=== PATIENT | male | born 1935 | race Hispanic/Latino ===

== ENCOUNTER 2019-10-20 13:03 | Observation (INO) | payer MEDICARE, OTHER ==
[~2019-10-20] VITALS: Ht 167.6 cm; Wt 92.1 kg
--- OUTSIDE RECORDS SUMMARY | 2019-10-20 13:06 | XMS REPORT | Summary of Care ---
Author Author GAVI Zeng M.A. Organization Unknown Address Unknown Phone Unavailable Care Team Providers Care Java Developer With Security Clearance Name Role Phone ZOEY GORDILLO M.D. Unavailable Unavailable Unavailable Unavailable Functional Status Name Dates Details Functional status health issues are not documented Status: Name Dates Details Cognitive status health issues are not d ocumented Status: Problems Name Dates Details Bilateral impacted cerumen (380.4, H61.2 3) Status: Active Medications Name Dates Details TraMADol HCl TABS Active Lantus SOLN * Refills: 0 Active Acetasol HC 2-1 % Otic Solution 3-4 drops to both ears TID * Quantity: 1 Refills: 1 ZOEY GORDILLO M.D. * Start : 12-Aug-2017 Active 10 ML Bottle Allergies and Adverse Reactions Name Dates Details No Known Drug Allergies (Allergy) Status : Active Past Medical History Name Dates Details History of arthritis (V13.4, Z87.39) Status: Resolved History of cataract (V12.49, Z86.69) Status: Resolved History of diabetes mellitus (V12.29, Z8 6.39) Status: Resolved History of hypertension (V12.59, Z86.79) Status: Resolved Procedures Procedure Dates Details History of cataract surgery Completed History of kidney surgery Completed Immunization Name Dates Details Immunizations not documented Family History Name Dates Details Family history of malignant neoplasm (V1 6.9, Z80.9) Comments: Family History Status: Active Social History Name Dates Details - Status: Name Dates Details Never smoker Vital Signs Date Test Result Details [id number] BP Systolic 137 mm[Hg] Status: BP Diastolic 56 mm[Hg] Status: Height 64 in Status: Weight 202 lb Status: Body Mass Index Calculated 34.67 kg/m2 Status: Body Surface Area Calculated 1.96 m2 Status: Heart Rate 96 /min Status: [id number] BP Systolic 137 mm[Hg] Status: BP Diastolic 80 mm[Hg] Status: Height 64 in Status: Weight 202.3125 lb Status: Body Mass Index Calculated 34.73 kg/m2 Status: Body Surface Area Calculated 1.97 m2 Status: Heart Rate 99 /min Status: Results Date Description Value Details [id number] Tobacco Use Screening Completed DONE Plan of Care Name Dates Details Planned Observations Planned Goals not documented Instructions Name Dates Details Instructions not documented Encounters Appointment; CARO DOMINGUEZ Encounter Diagnosis: Problem not documented On: 18-Jun-2017 11:30 Appointment; ZOEY GORDILLO M.D. Encounter Diagnosis: Problem not documented On: 09-Jul-2017 11:15 Appointment; ZOEY GORDILLO M.D. Encounter Diagnosis: Problem not documented On: 12-Aug-2017 13:00 Appointment; ZOEY GORDILLO M.D. Encounter Diagnosis: Problem not documented On: 06-Sep-2017 14:15
--- OUTSIDE RECORDS SUMMARY | 2019-10-20 13:06 | XMS REPORT ---
Author Author [facility] Organization [facility] Address Unknown Phone Unavailable Care Team Providers Care Assistant Sales Manager Name Role Phone ZOEY GORDILLO M.D. Unavailable Unavailable CARO DOMINGUEZ Unavailable Unavailable Problems Condition Name Condition Details Condition Category Status Onset Date Resolution Date Last Treatment Date Treating Clinician Comments History of arthritis History of arthritis Problem HL7.CCDAR2 Resolved History of cataract History of cataract Problem HL7.CCDAR2 Resolved History of diabetes mellitus History of diabetes mellitus Proble m HL7.CCDAR2 Resolved History of hypertension History of hypertension Problem HL7.CCDAR2 Res olved Bilateral impacted cerumen Bilateral impacted cerumen Problem HL7.C CDAR2 Active Allergies, Adverse Reactions, Alerts This patient has no known allergies or adverse reactions. Medications Ordered Medication Name Filled Medication Name Start Date Stop Da te Current Medication? Ordering Clinician Indication Dosage Frequency Signature (SIG) Comments Components Acetasol HC 2-1 % Otic Solution Acetasol HC 2-1 % Otic Solut ion 2017-08-12 00:00:00 Yes ZOEY GORDILLO M.D. 3-4 drops to both ears TID TraMADol HCl TABS TraMADol HCl TABS Yes Lantus SOLN Lantus SOLN Yes Vital Signs Vital Name Observation Time Observation Value Comments BP Systolic 2017-09-06 14:20:00 137 mm[Hg] BP Diastolic 2017-09-06 14:20:00 56 mm[Hg] Height 2017-09-06 14:20:00 64 [in_us] Weight 2017-09-06 14:20:00 202 [lb_av] Heart Rate 2017-09-06 14:20:00 96 /min BP Systolic 2017-08-12 13:32:00 137 mm[Hg] BP Diastolic 2017-08-12 13:32:00 80 mm[Hg] Height 2017-08-12 13:32:00 64 [in_us] Weight 2017-08-12 13:32:00 202.3125 [lb_av] Heart Rate 2017-08-12 13:32:00 99 /min Procedures and Interventions Procedure Date / Time Performed Performing Clinici an History of cataract surgery History of kidney surgery Encounters Start Date/Time End Date/Time Encounter Type Admission Type Att[facility] Care Department Encounter ID 2017-09-06 14:15:00 2017-09-06 14:15:00 Appointment; ZOEY GORDILLO M.D. BYRD, MICHAEL, M.D. [id number] 2017-08-12 13:00:00 2017-08-12 13:00:00 Appointment; ZOEY GORDILLO M.D. BYRD, MICHAEL, M.D. [facility] [id number] 2017-07-09 11:15:00 2017-07-09 11:15:00 Appointment; ZOEY GORDILLO M.D. BYRD, MICHAEL, M.D. [facility] [id number] 2017-06-18 11:30:00 2017-06-18 11:30:00 Appointment; HALIE DOMINGUEZ [facility] [id number] Results Test Description Test Time Test Comments Text Results Atomic Results Result Comments Tobacco Use Screening 2017-08-12 19:00:00 Completed (test code = Completed) DONE
[2019-10-20 13:54] LABS: BASOPHILS % 0.2 % (0.0-1.0); EOSINOPHILS # (AUTO) 0.2 (0.0-0.4); EOSINOPHILS % 1.3 % (0.0-6.0); HEMATOCRIT 38.2 % (38.2-49.6); HEMOGLOBIN 12.6 g/dL (14.0-18.0); LYMPHOCYTES # (AUTO) 1.9 (1.0-3.2); LYMPHOCYTES % 12.9 % (18.0-39.1); MEAN CORPUSCULAR HEMOGLOBIN 29.7 pg (28-32); MEAN CORPUSCULAR VOLUME 90.1 fL (81-99); MONOCYTES # (AUTO) 0.7 (0.2-0.8); MONOCYTES % 4.9 % (4.4-11.3); NEUTROPHILS # (AUTO) 11.6 (2.1-6.9); NEUTROPHILS % 80.1 % (38.7-80.0); PLATELET COUNT 343 x10e3/uL (140-360); RED BLOOD COUNT 4.24 x10e6/uL (4.3-5.7); RED CELL DISTRIBUTION WIDTH 13.5 % (11.7-14.4)
[2019-10-20 14:02] LABS: INR 1.02
[2019-10-20 14:03] LABS: PARTIAL THROMBOPLASTIN TIME 28.8 seconds (23.8-35.5)
[2019-10-20 14:36] LABS: ALANINE AMINOTRANSFERASE 14 IU/L (0-55); ALBUMIN 3.7 g/dL (3.5-5.0); ALBUMIN/GLOBULIN RATIO 1.1 (0.8-2.0); ALKALINE PHOSPHATASE 78 IU/L (40-150); ANION GAP 16.7 mmol/L (8-16); BLOOD UREA NITROGEN 10 mg/dL (7-26); BUN/CREATININE RATIO 12 (6-25); CALCIUM 9.7 mg/dL (8.4-10.2); CARBON DIOXIDE 21 mmol/L (22-29); CHLORIDE 105 mmol/L (98-107); CREATINE KINASE 96 IU/L (30-200); CREATININE, SERUM 0.85 mg/dL (0.72-1.25); EST GLOMERULAR FILTRATION RATE > 60 ML/MIN (60-); GLUCOSE 309 mg/dL (74-118); POTASSIUM 3.7 mmol/L (3.5-5.1); SODIUM 139 mmol/L (136-145)
--- NOTE | 2019-10-20 15:10 | Emergency Department Note ---
History of Present Illnes History of Present Illness Chief Complaint: Chest Pain Stated Complaint: CP History of Present Illness This is a 84 year old male . History limited by: language barrier (FAMILY WITH PATIENT) Chemist Steroids Required: No Onset (how long ago): minute(s) (30 MIN MAINTAINER CENTRAL OFFICE) Severity: moderate Onset quality: sudden Timing of current episode: constant Progression: resolved Chronicity: new Relieving factors: none Exacerbating factors: none Associated symptoms: denies other symptoms Treatments prior to arrival: none (ROMAIN MORALES NP) Past Medical/Family History Physician Review I have reviewed the patient's past medical and family history. Any updates have been documented here. (ROMAIN MORALES NP) Past Medical History Recent Fever: No Clinical Suspicion of Infectio: No New/Unexplained Change in Ment: No Past Medical History: Hypertension, Diabetes, Hyperlipedemia (ROMAIN MORALES NP) Social History Smoking Cessation: Former smoker Alcohol Use: None Any Illegal Drug Use: No TB Exposure/Symptoms: No (ROMAIN MORALES NP) Family History Family history of heart diseas: Yes (ROMAIN MORALES NP) Other Any Pre-Existing Lines (PICC,: No Is patient up to date on immun: Yes (ROMAIN MORALES NP) Review of Systems Review of Systems Constitutional: no symptoms EENTM: no symptoms Cardiovascular: chest pain Respiratory: no symptoms Gastrointestinal: no symptoms Genitourinary: no symptoms Musculoskeletal: no symptoms Integumentary: no symptoms Neurological: no symptoms Psychological: no symptoms Endocrine: no symptoms Hematological/Lymphatic: no symptoms Review of other systems All other systems reviewed and negative. (ROMAIN MORALES NP) Physical Exam Related Data Allergies: Coded Allergies: No Known Allergies (Unverified , 10/20/19) Exam Narrative Exam Narrative PATIENT IS A 84 YEAR OLD MALE THAT PRESENTS WITH CHEST PAIN THAT LASTED 30 MIN MAINTAINER CENTRAL OFFICE. PATIENT DENIES ANY PAIN AT THIS TIME, DENIES SOB,DIZZINESS OR ANY OTHER CONCERNS (ROMAIN MORALES NP) Physical Exam CONSTITUTIONAL Constitutional: well-developed, well-nourished HENT HENT: normocephalic, atraumatic, pharynx abnormal, erythema EYES Eyes: PERRL, conjunctivae normal, EOM normal, lids normal NECK Neck: ROM normal, supple PULMONARY Pulmonary: effort normal, breath sounds normal CARDIOVASCULAR Cardiovascular: regular rhythm, heart sounds normal, intact distal pulses, capillary refill normal GASTROINTESTINAL Abdominal: soft, nontender, bowel sounds normal GENITOURINARY SKIN Skin: warm, dry MUSCULOSKELETAL Musculoskeletal: ROM normal NEUROLOGICAL Neurological: alert, oriented x 3 PSYCHOLOGICAL Psychiatric/behavioral: mood/affect normal, behavior normal (ROMAIN MORALES NP) Procedures 12 Lead ECG Interpretation Chemist Steroids: Interpreted by ED physician (BENJAMIN) Date: October 20, 2019 Time: 13:24 Prior CROTCH PIECE BASTER tracings: reviewed Rhythm: sinus tachycardia Rate: tachycardia Conduction: 1st degree Clinical Impression: abnormal ECG (ROMAIN MORALES NP) Critical Care Time Subsequent provider I assumed direction of critical care for this patient from another provider of my specialty. (ROMAIN MORALES NP) Assessment & Plan Assessment & Plan Problems: (1) Chest pain (SO ALEXANDER, ) Reassessment Reassessment 1430- AWAITING ALL RESULTS 1500- SPOKE TO DR CUMMINGS AND WILL PLACE ADMISSION ORDERS TO OBS, UPDATED FAMILY AND ANSWERED ALL QUESTIONS. PATIENT DENIES CHEST PAIN AT THIS TIME (ROMAIN MORALES NP) Depart Disposition: ADMITTED Home Meds Reported Medications Simvastatin (SIMVASTATIN) 40 Mg Tablet, 40 MG HS 10/20/19 Mirabegron (MYRBETRIQ) 50 Mg Tab.er.24h, 50 MG DAILY 10/20/19 Gabapentin (GABAPENTIN) 100 Mg Capsule, 100 MG 10/20/19 Metformin Hcl (METFORMIN HCL) 500 Mg Tablet, 500 MG BID 10/20/19 Glimepiride (GLIMEPIRIDE) 2 Mg Tablet, 2 MG BID 10/20/19 Amlodipine Besylate (AMLODIPINE BESYLATE) 2.5 Mg Tablet, 2.5 MG 10/20/19 Enalapril Maleate (ENALAPRIL MALEATE) 20 Mg Tablet, 20 MG BID 10/20/19 Levothyroxine Sodium (LEVOTHYROXINE SODIUM) 75 Mcg Tablet, 75 MCG 10/20/19 Attestation Medications in the ED The patient's history, exam findings, diagnostics, and a summary of any interventions or procedures was reviewed in detail with our YOVANI. I personally interviewed and examined the patient, and I have reviewed and agree with the HPI andexam. My personal exam shows well appearing male, no acute distress, elevated heart score- required hospital admission. I confirm the diagnosis as documented by the YOVANI. I have reviewed and agree with the care plan articulated in the disposition section. (SO ALEXANDER DO) ROMAIN MORALES NP October 20, 2019 13:21 SO ALEXANDER DO October 20, 2019 15:48
[2019-10-20] MEDS ORDERED: AMLODIPINE BES2.5 MG (17:23)
[2019-10-20] MEDS ORDERED: SIMVASTATIN40 MG (17:23)
[2019-10-20] MEDS ORDERED: LEVOTHYROXINE75 MCG (17:23)
[2019-10-20] MEDS ORDERED: GABAPENTIN100 MG (17:23)
[2019-10-20] MEDS ORDERED: ENALAPRIL MALEA20 MG (17:23)
[2019-10-20] MEDS ORDERED: GLIMEPIRIDE2 MG (17:23)
[2019-10-20] MEDS ORDERED: METFORMIN HCL500 MG (17:23)
[2019-10-20] MEDS ORDERED: MYRBETRIQ50 MG (17:23)
--- NOTE | 2019-10-20 18:05 | NUR ---
PT ARRIVED FROM ER. EDUCATED PT ABOUT FALL PRECAUTIONS. PT VERBALIZED UNDERSTANDING. CALL LIGHT WITH IN EASY REACH. INSTRUCTED PT TO USE CALL LIGHT FOR ALL THE NEEDS. BED IS LOW AND LOCKED. SIDE RAILS X2. BED ALARM IS ON. PT DENIES NEEDS AT THIS TIME.
[2019-10-20 18:14] VITALS: BP 128/65
[2019-10-20 18:17] VITALS: BP 128/65
--- NOTE | 2019-10-20 19:00 | NUR ---
BEDSIDE SHIFT REPORT GIVEN TO THE REFRACTORY MANAGER RN. PT DENIED FURTHER NEEDS.
[2019-10-20 20:00] VITALS: BP 172/70
[2019-10-20 20:41] VITALS: BP 172/70
--- NOTE | 2019-10-20 22:59 | NUR ---
History and Physical [id number] dictated (coverage for Dr Stallworth)
[2019-10-20] MEDS ORDERED: HYDRALAZINE HCL 20 MG/ML VIAL IV PRN (23:00)
[2019-10-20] MEDS ORDERED: DEXTROSE 50% SYRINGE 50 ML IV PRN (23:00)
[2019-10-20 23:40] LABS: CREATINE KINASE MB 1.2 ng/mL (0-5.0)
[2019-10-21] VITALS (8 sets, daily range): BP systolic 110–148; BP diastolic 53–66
--- NOTE | 2019-10-21 02:27 | Diagnostic Imaging Report ---
EXAMINATION: CHEST 2 VIEWS INDICATION: ^cardiomegaly ^[id number] ^[id number] COMPARISON: None FINDINGS: PA and lateral views TUBES and LINES: None. LUNGS: Lungs are well inflated. Subtle opacities of the bilateral lower lung zones suggestive of atelectasis and/or scarring. PLEURA: No pleural effusion or pneumothorax. HEART AND MEDIASTINUM: The cardiac silhouette is enlarged. BONES AND SOFT TISSUES: Possible chronic deformity of the right shoulder. UPPER ABDOMEN: No free air under the diaphragm. IMPRESSION: Stable cardiomegaly. Signed by: Silverio Bonilla MD on 10/21/2019 2:17 AM
--- NOTE | 2019-10-21 02:32 | History and Physical ---
PRIMARY CARE DOCTOR: Bernardo James MD HOSPITAL DOCTOR: Kade Stallworth MD This is coverage for Dr. Stallworth. CHIEF COMPLAINT: Chest pain. HISTORY OF PRESENT ILLNESS: Mr. Yi is a pleasant 84-year-old gentleman with chest pain. The patient never had a head buyer tobacco before. He never had a heart evaluation due to lack of symptoms. He had one day of chest pain. Occurred about 30 minutes prior to admission. Moderate intensity and first time, this ever happened in his life. The patient was brought in by at the urging of his daughter. In the emergency room, EKG with sinus tachycardia 104 beats per minute, first-degree AV block with left atrial enlargement, borderline right conduction delay pattern. QRS width at 90 milliseconds measured electronically. He is admitted for evaluation. PAST MEDICAL HISTORY: Diabetes, hypertension, possible. For most part, no chronic medical conditions. He has lower back pain, which limits his exercise tolerance about 1/2 block, limited by pain only. MEDICATIONS: Medication list reviewed per the chart record. Gabapentin, glimepiride, levothyroxine, metformin, simvastatin, amlodipine, enalapril, and Myrbetriq. ALLERGIES: NO KNOWN DRUG ALLERGIES. FAMILY HISTORY: Noncontributory to this condition. SOCIAL HISTORY: The patient denies smoking, no drinking, no drugs. 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 He lived in [place] for 40 years, although he is born in [place]. He lives with his , who is healthy. REVIEW OF SYSTEMS: GENERAL: No weight loss. OPHTHALMOLOGIC: No double vision. ENT: No mouth ulcers. ENDOCRINE: He does not sight significant thyroid abnormality despite medicines being on board. PULMONARY: No asthma. CARDIAC: No heart attack. : No blood in urine. GI: No constipation. DERMATOLOGIC: No rash. NEUROLOGIC: No seizures. PSYCHIATRIC: No depression. OBJECTIVE: VITAL SIGNS: Afebrile, vital signs noted and reviewed per the chart record. BMI 32.7. GENERAL: In no acute distress. Alert and calm. HEENT: Normocephalic and atraumatic. NECK: Supple. Throat midline. LUNGS: Bilateral air entry clear. CARDIOVASCULAR: S1, S2. No murmurs, rubs, or gallops. ABDOMINAL: Soft and nontender. EXTREMITIES: No clubbing, no cyanosis, no edema. INTEGUMENT: No rash. No purpura. DIAGNSOIC STUDIES: Chest x-ray limited, cardiomegaly, mild peripheral haziness, possible effusion cannot be ruled out. LABORATORY DATA: 3.7 potassium, 20 bicarbonate, 10 BUN, 0.85 creatinine. 14 white count, 30 hematocrit, 343 platelets. IMPRESSION: 1. Chest pain, first-time onset. 2. Abnormal EKG, treated for acute coronary syndrome. 3. Diabetes, chronically uncontrolled. 4. Hypertension. 5. Hyperlipidemia. 6. Thyroid abnormality, presumed. 7. Lower back pain, limiting activity at times. 8. Abnormal chest radiography, limited film due to technique. Admit to hospital, telemetry. Cardiac enzymes and serial EKG. Cardiology consult for risk stratification. We will do two-view chest x-ray and if he remains ambivalent, we will consider chest CT to assess the lungs better. In the meantime, we will give 1st dose antibiotics and consider continuation for possible pneumonia, community-acquired. We will follow up on his diabetes control and blood pressure control. We will check a BNP level to assess his status of his heart at this time. Coronavirus-19 test is pending. Thank you very much, Dr. James, for allowing me and Dr. Stallworth a chance to participate in the care of Mr. Yi. Please call for questions. MD KRISTI Vera/ARTUORL /[id number]
[2019-10-21 05:24] LABS: BASOPHILS % 0.3 % (0.0-1.0); EOSINOPHILS # (AUTO) 0.4 (0.0-0.4); EOSINOPHILS % 3.3 % (0.0-6.0); HEMATOCRIT 33.8 % (38.2-49.6); HEMOGLOBIN 11.4 g/dL (14.0-18.0); LYMPHOCYTES % 17.7 % (18.0-39.1); MEAN CORPUSCULAR HEMOGLOBIN 29.5 pg (28-32); MEAN CORPUSCULAR HGB CONC 33.7 g/dL (31-35); MEAN CORPUSCULAR VOLUME 87.6 fL (81-99); MONOCYTES # (AUTO) 0.7 (0.2-0.8); MONOCYTES % 6.1 % (4.4-11.3); NEUTROPHILS # (AUTO) 8.1 (2.1-6.9); PLATELET COUNT 330 x10e3/uL (140-360); RED BLOOD COUNT 3.86 x10e6/uL (4.3-5.7); RED CELL DISTRIBUTION WIDTH 13.4 % (11.7-14.4)
[2019-10-21 05:52] LABS: ANION GAP 12.5 mmol/L (8-16); BLOOD UREA NITROGEN 9 mg/dL (7-26); BUN/CREATININE RATIO 16 (6-25); CALCIUM 8.6 mg/dL (8.4-10.2); CARBON DIOXIDE 25 mmol/L (22-29); CHLORIDE 108 mmol/L (98-107); CREATININE, SERUM 0.58 mg/dL (0.72-1.25); EST GLOMERULAR FILTRATION RATE > 60 ML/MIN (60-); GLUCOSE 85 mg/dL (74-118); POTASSIUM 3.5 mmol/L (3.5-5.1); SODIUM 142 mmol/L (136-145)
[2019-10-21] MEDS: LEVOTHYROXINE SODIUM 75 MCG TAB PO SCH (06:12)
[2019-10-21 06:15] LABS: CHOL/HDL RATIO 3.2 (3.9-4.7)
--- NOTE | 2019-10-21 06:33 | NUR ---
NEW CONSULT DR WALLS CALLED, SPOKE TO CARLOS.
[2019-10-21 06:34] LABS: THYROID STIMULATING HORMONE 3.564 uIU/mL (0.350-4.940)
--- NOTE | 2019-10-21 07:00 | NUR ---
BEDSIDE SHIFT REPORT RECEIVED FROM THE GOLD AND SILVER ASSAYER RN. EDUCATED PT ABOUT FALL PRECAUTIONS. PT VERBALIZED UNDERSTANDING. CALL LIGHT WITH IN EASY REACH. INSTRUCTED PT TO USE CALL LIGHT FOR ALL THE NEEDS. BED IS LOW AND LOCKED. SIDE RAILS X2. PT DENIES NEEDS AT THIS TIME.
--- NOTE | 2019-10-21 07:15 | Diagnostic Imaging Report ---
EXAMINATION: CHEST SINGLE (PORTABLE) INDICATION: ^CHEST PAIN ^[id number] ^[id number] COMPARISON: 10/21/2019 FINDINGS: AP view TUBES and LINES: None. LUNGS: Lungs are well inflated. Lungs are clear. There is no evidence of pneumonia or pulmonary edema. PLEURA: No pleural effusion or pneumothorax. HEART AND MEDIASTINUM: The cardiomediastinal silhouette is enlarged. Mild fullness of the pulmonary vasculature is unchanged. BONES AND SOFT TISSUES: No acute osseous lesion. Soft tissues are unremarkable. UPPER ABDOMEN: No free air under the diaphragm. IMPRESSION: Stable cardiomegaly. No new pulmonary consolidation. Signed by: Silverio Bonilla MD on 10/21/2019 7:11 AM
[2019-10-21] MEDS: INSULIN REGULAR, HUMAN 100 UNIT/1 ML 3ML VIAL SQ SCH ×4 (07:30→20:54)
--- NOTE | 2019-10-21 08:30 | NUR ---
PT TOOK THE HOME MEDS ALREADY. EDUCATED PT ON HOSPITAL POLICY ON HOME MEDICATIONS. PT VERBALIZED UNDERSTANDING.
[2019-10-21] MEDS: NON-FORMULARY MEDICATION (Mirabegron (Myrbetriq) 50 MG) PO SCH (08:35)
[2019-10-21] MEDS: GABAPENTIN 100 MG CAP PO SCH ×2 (08:35→16:57)
[2019-10-21] MEDS: ASPIRIN 325 MG TAB PO SCH (08:36)
[2019-10-21] MEDS ORDERED: ENALAPRIL MALEATE 10 MG TAB PO SCH (09:00)
--- NOTE | 2019-10-21 09:37 | Diagnostic Imaging Report ---
Examination: Single AP view of the chest. COMPARISON: None. INDICATION: Chest pain DISCUSSION: Lines/tubes: None. Lungs: Prominent interstitial markings. No consolidative pneumonia. Pleura: No pleural effusion or pneumothorax. Heart and mediastinum: Cardiomegaly Bones and soft tissues: No acute bony abnormalities. IMPRESSION: Cardiomegaly with prominent interstitial markings, likely age-related change. Signed by: Dr. Augusto Ramsey M.D. on 10/21/2019 9:26 AM
--- NOTE | 2019-10-21 10:00 | NUR ---
CALLED DR. WALLS OFFICE REGARDING NEW CONSULT.
--- NOTE | 2019-10-21 12:15 | NUR ---
INTERNAL MEDICINE Coverage for Dr. Stallworth. DATE: 10/21/19 SUBJECTIVE: RA fio2 today no chest pain echo with 1.1 cm PATY, 60% LVEF, IVSD 0.9 cm eating ok, BM CXR stable, right atelectasis NOS REVIEW OF SYSTEMS: No headache, No depression. OBJECTIVE: VITAL SIGNS: vital signs noted and reviewed per the chart record. GENERAL: no acute distress. Alert and calm. HEENT: Normocephalic and atraumatic. NECK: Supple. Throat midline. LUNGS: Bilateral air entry clear. CARDIOVASCULAR: S1, S2. No murmurs, rubs, or gallops. ABDOMINAL: Soft and nontender. EXTREMITIES: No clubbing, no cyanosis, no edema. INTEGUMENT: No rash. No purpura. LABORATORY DATA: k 3.5, cr 0.58, wbc 11, hct 33.8, plt 330 IMPRESSION: 1. Chest pain, first-time onset. 2. Abnormal EKG, treat as acute coronary syndrome. Peak troponin 0.1 3. Diabetes, chronically uncontrolled. 4. Hypertension. 5. Hyperlipidemia. 6. Thyroid abnormality 7. Lower back pain, limiting activity at times. 8. Abnormal chest radiography, limited film due to technique. 9. Aortic stenosis, 1.1 cm2 PATY on TTE 10. abnormal chest radiography, CAP pneumonia vs atelectasis Continue telemetry Follow with cardiology consult two-view chest x-ray today ---> Continue trial of abx Follow up on his diabetes control and blood pressure control. BNP 54 Thank you very much, Dr. James, for allowing me and Dr. Stallworth a chance to participate in the care of Mr. Yi. Please call for questions.
--- NOTE | 2019-10-21 12:40 | NUR ---
DR. WALLS AT BEDSIDE. NEW ORDERS RECEIVED.
[2019-10-21] MEDS ORDERED: POTASSIUM CHLORIDE 20 MEQ TAB CR PO ONE (12:45)
[2019-10-21 12:52] LABS: CREATINE KINASE MB 0.9 ng/mL (0-5.0)
--- NOTE | 2019-10-21 13:30 | NUR ---
PT HOME MEDS GIVEN TO THE PHARMACY LOCKER.
--- NOTE | 2019-10-21 14:30 | NUR ---
PT SIGNED CONSENT FOR STRESS TEST DIXIE SCAN. PAGED DAUGHTERS NACHO AND YENI FROM PT ROOM. OKAY PER PT AND FAMILY. PT DENIED FURTHER NEEDS.
--- NOTE | 2019-10-21 15:40 | NUR ---
PT OFF UNIT TO NUCLEAR MED IN SAFE CONDITION.
--- NOTE | 2019-10-21 19:00 | NUR ---
Received patient awake, not in distress, call light within easy reach, advised to call anytime when needed. Patient instructed to be on NPO after midnight, verbalized understanding. Will continue to monitor patient.
--- NOTE | 2019-10-21 19:18 | NUR ---
BEDSIDE SHIFT REPORT GIVEN TO THE SPINNER CAP FRAME RN. PT DENIED FURTHER NEEDS.
[2019-10-21] MEDS: METOPROLOL SUCCINATE 25 MG TAB XL PO SCH (20:54)
[2019-10-21] MEDS: SIMVASTATIN 40 MG TAB PO SCH (20:54)
[2019-10-21] MEDS: ENALAPRIL MALEATE 10 MG TAB PO SCH (20:54)
--- NOTE | 2019-10-21 22:46 | Consultation ---
DATE OF CONSULTATION: 10/21/2019 Cardiology Consultation REASON FOR CONSULTATION: Chest discomfort. CONSULTING PHYSICIAN: Primo Shrestha MD, Interventional Cardiology. HISTORY OF PRESENT ILLNESS: An 84-year-old pleasant man with a history of hypothyroidism, hyperlipidemia, hypertension, and type 2 diabetes mellitus, morbid obesity, presents with complaints of retrosternal chest discomfort pressure-like onset yesterday occurring while at rest, lasting 10 minutes while walking out of a rest room, nonradiating, no associated symptoms, and no recurrence since. Initial cardiac biomarkers are ruled out for AMI. Echocardiogram has been performed, remarkable for preserved left ventricular systolic function, however, with aortic valve stenosis of moderate severity. REVIEW OF SYSTEMS: A 12-system review is negative except for as noted above. ALLERGIES: NO KNOWN DRUG ALLERGIES. PAST MEDICAL HISTORY: As per HPI. SOCIAL HISTORY: No smoking, alcohol or drugs. FAMILY HISTORY: Noncontributory. PHYSICAL EXAMINATION: VITAL SIGNS: Temperature 98.9, heart rate 99, blood pressure 110/53, respiratory rate 16, and O2 saturation 96%. GENERAL: No acute distress, alert. NECK: No JVD. CHEST: Clear to auscultation. CARDIOVASCULAR: Regular rate and rhythm. Normal S1 and S2. Crescendo systolic ejection murmur 3/6. No S3 no S4. ABDOMEN: Soft. Bowel sounds positive. EXTREMITIES: Trace edema in both lower extremities. CARDIOVASCULAR MEDICATIONS: Reviewed. Enalapril 20 mg b.i.d., aspirin 325 mg daily, and simvastatin 40 mg at bedtime. LABORATORY DATA: Studies reviewed. Creatinine 0.5, hemoglobin 11.4, platelets 330. Negative cardiac biomarkers. ASSESSMENT: An 84-year-old man presents with: 1. Atypical chest discomfort. 2. Aortic stenosis, moderate. 3. Diabetes mellitus type 2. 4. Hypertension. 5. Dyslipidemia. 6. Morbid obesity. 7. Frailty and deconditioning. RECOMMENDATIONS: 1. Lexiscan stress test has been discussed with the patient. We will obtain resting images today and schedule for stress tomorrow a.m. 2. Metoprolol 12.5 mg at bedtime. 3. Continue statin and aspirin. 4. We will need close outpatient followup for aortic valve stenosis. I thank Dr. James, Dr. Stallworth, and Dr. Noyola for the opportunity to participate in the care of Bernardo. Please call with any questions. MD MATA Salomon/ARTUROL /[id number] MTDD
[2019-10-22] VITALS (9 sets, daily range): BP systolic 116–150; BP diastolic 55–71
[2019-10-22] MEDS: LEVOTHYROXINE SODIUM 75 MCG TAB PO SCH (05:21)
--- NOTE | 2019-10-22 07:16 | NUR ---
bedside rounding done with incoming nurse, call light within easy reach
[2019-10-22] MEDS: INSULIN REGULAR, HUMAN 100 UNIT/1 ML 3ML VIAL SQ SCH ×4 (07:30→21:00)
[2019-10-22] MEDS ORDERED: REGADENOSON 0.4 MG/5 ML SYR IV ONE (08:13)
[2019-10-22] MEDS: NON-FORMULARY MEDICATION (Mirabegron (Myrbetriq) 50 MG) PO SCH (09:00)
[2019-10-22] MEDS: ENALAPRIL MALEATE 10 MG TAB PO SCH ×2 (09:00→20:21)
[2019-10-22] MEDS: ASPIRIN 325 MG TAB PO SCH (09:00)
[2019-10-22] MEDS: GABAPENTIN 100 MG CAP PO SCH ×2 (09:00→15:25)
--- NOTE | 2019-10-22 11:45 | NUR ---
INTERNAL MEDICINE Coverage for Dr. Stallworth. DATE: 10/22/19 SUBJECTIVE: Patient ate today No stress test feasible no new chest tightness RA fio2 today REVIEW OF SYSTEMS: No headache, No depression. OBJECTIVE: VITAL SIGNS: vital signs noted and reviewed per the chart record. GENERAL: no acute distress. Alert and calm. HEENT: Normocephalic and atraumatic. NECK: Supple. Throat midline. LUNGS: Bilateral air entry clear. CARDIOVASCULAR: S1, S2. No murmurs, rubs, or gallops. ABDOMINAL: Soft and nontender. EXTREMITIES: No clubbing, no cyanosis, no edema. INTEGUMENT: No rash. No purpura. LABORATORY DATA: k 3.5, cr 0.58, wbc 11, hct 33.8, plt 330 IMPRESSION: 1. Chest pain, first-time onset. 2. Abnormal EKG, treat as acute coronary syndrome. Peak troponin 0.1 3. Diabetes, chronically uncontrolled. 4. Hypertension. 5. Hyperlipidemia. 6. Thyroid abnormality 7. Lower back pain, limiting activity at times. 8. Abnormal chest radiography, limited film due to technique. 9. Aortic stenosis, 1.1 cm2 PATY on TTE 10. abnormal chest radiography, CAP pneumonia vs atelectasis Continue telemetry per cardiology Follow with cardiology consult Continue trial of abx, outpatient CXR repeat Follow up on his diabetes control and blood pressure control. BNP 54 Patient scheduled for stress test tomorrow. Decision for invasive testing will be based on stress test result. Thank you very much, Dr. James, for allowing me and Dr. Stallworth a chance to participate in the care of Mr. Yi. Please call for questions.
--- NOTE | 2019-10-22 16:24 | NUR ---
DAY 2 OBS SCHEDULED FOR STRESS TEST AT 9AM TODAY HOWEVER PT WAS FED BREAKFAST DR WALLS SCHEDULED STRESS FOR TOMORROW AM (DAY 3 OBS)
--- NOTE | 2019-10-22 19:23 | NUR ---
walking rounds complete, pt stable at shift change, bedside report given to on coming nurse.
[2019-10-22] MEDS: METOPROLOL SUCCINATE 25 MG TAB XL PO SCH (20:21)
[2019-10-22] MEDS: SIMVASTATIN 40 MG TAB PO SCH (20:21)
--- NOTE | 2019-10-22 20:30 | Progress Note ---
DATE: 10/22/2019 Cardiology Progress Note SUBJECTIVE: Mr. Yi denies any recurrent chest pain or shortness of breath. He had breakfast and coffee this morning in spite of been advised and being n.p.o. overnight. Discussed with nursing staff. OBJECTIVE: VITAL SIGNS: Temperature 98.7, heart rate 78, blood pressure 116/55, respiratory rate 20, O2 saturation 97%, BMI 32.7. GENERAL: In no acute distress, alert. NECK: No JVD. CHEST: Clear to auscultation. CARDIOVASCULAR: Regular rate and rhythm. Normal S1 and S2. No S3 or S4. Systolic ejection murmur. ABDOMEN: Soft. Bowel sounds positive. EXTREMITIES: No edema. CARDIOVASCULAR MEDICATIONS: Reviewed. Aspirin 325 mg daily, enalapril 10 mg every 12 hours, simvastatin 40 mg at bedtime, metoprolol succinate 12.5 mg at bedtime. STUDIES: Reviewed. Sodium 142, potassium 3.5, chloride 108, bicarbonate 25, BUN 9, creatinine 0.58, glucose 85. White blood cells 11.2, hemoglobin 11.4, platelets 330. INR 1.02, PT 14, PTT 28.8. AST 17, ALT 14, alkaline phosphatase 78. ASSESSMENT AND PLAN: An 84-year-old man presents with chest discomfort, moderate aortic stenosis, preserved left ventricular systolic function, diabetes mellitus, hypertension, dyslipidemia, frailty, deconditioning. Recommend stress test scheduled for this a.m. The patient is status post resting images, however, given he is eating breakfast this morning and coffee intake, we will have to reschedule for tomorrow morning. Continue current cardiovascular medications. Discussed at length with the patient and nursing staff. The patient to be caffeine free for the following 24 hours until after stress test and n.p.o. after midnight. Primo Shrestha MD AFLeonel/MODL /[id number]
[2019-10-23 04:40] VITALS: BP 151/67
[2019-10-23] MEDS: LEVOTHYROXINE SODIUM 75 MCG TAB PO SCH (05:39)
[2019-10-23 08:09] VITALS: BP 140/61
[2019-10-23 09:53] VITALS: BP 140/61
--- NOTE | 2019-10-23 10:29 | NUR ---
INTERNAL MEDICINE Coverage for Dr. Stallworth. DATE: 10/23/19 SUBJECTIVE: NPO today stress test just done REVIEW OF SYSTEMS: No headache, No depression. OBJECTIVE: VITAL SIGNS: vital signs noted and reviewed per the chart record. GENERAL: no acute distress. Alert and calm. HEENT: Normocephalic and atraumatic. NECK: Supple. Throat midline. LUNGS: Bilateral air entry clear. CARDIOVASCULAR: S1, S2. No murmurs, rubs, or gallops. ABDOMINAL: Soft and nontender. EXTREMITIES: No clubbing, no cyanosis, no edema. INTEGUMENT: No rash. No purpura. LABORATORY DATA: no new updates IMPRESSION: 1. Chest pain, first-time onset. 2. Abnormal EKG, treat as acute coronary syndrome. Peak troponin 0.1 3. Diabetes, chronically uncontrolled. 4. Hypertension. 5. Hyperlipidemia. 6. Thyroid abnormality 7. Lower back pain, limiting activity at times. 8. Abnormal chest radiography, limited film due to technique. 9. Aortic stenosis, 1.1 cm2 PATY on TTE 10. abnormal chest radiography, CAP pneumonia vs atelectasis Continue telemetry per cardiology Follow with cardiology consult nuclear stress test today Continue trial of abx, outpatient CXR repeat Follow up on his diabetes control and blood pressure control. BNP 54 discharge if stress test good Thank you very much, Dr. James, for allowing me and Dr. Stallworth a chance to participate in the care of Mr. Yi. Please call for questions.
[2019-10-23] MEDS ORDERED: AZITHROMYCIN250 MG PO (10:31)
[2019-10-23] MEDS ORDERED: ASPIR 8181 MG PO (10:33)
--- NOTE | 2019-10-23 10:37 | NUR ---
discharge summary [id number] stress test negative perfusion defects. 64% lvef
--- NOTE | 2019-10-23 11:43 | Progress Note ---
DATE: 10/23/2019 Cardiology Progress Note SUBJECTIVE: No chest pain or shortness of breath, for stress test today. OBJECTIVE: VITAL SIGNS: Temperature 97.7, heart rate 74, blood pressure 140/61, respiratory rate 20, O2 saturation 98%, BMI 32.7. GENERAL: In no acute distress. Alert. NECK: No JVD. CHEST: Clear to auscultation. CARDIOVASCULAR: Regular rate and rhythm. Normal S1 and S2. Crescendo systolic ejection murmur 3/6. No S3 or S4. ABDOMEN: Soft. Bowel sounds positive. Morbidly obese. EXTREMITIES: No edema. Warm extremities. CARDIOVASCULAR MEDICATIONS: Reviewed. Aspirin 325 mg daily, hydralazine 10 mg every 4 hours p.r.n., enalapril 10 mg every 12 hours, metoprolol succinate 12.5 mg every night at bedtime. STUDIES: Reviewed. Sodium 142, potassium 3.5, chloride 102, bicarbonate 25, BUN 9, creatinine 0.58, glucose 85. White blood cells 11, hemoglobin 11.4, platelets 330. INR 1.02. AST 17, ALT 14, alkaline phosphatase 78. ASSESSMENT AND PLAN: An 84-year-old man with: 1. Chest discomfort, atypical. 2. Moderate aortic stenosis. 3. Hypothyroidism. 4. Hypertension. 5. Diabetes mellitus. RECOMMENDATIONS: 1. Stress test being done this a.m., report to follow. If reassuring results, okay to discharge with outpatient followup in 4-6 weeks. 2. Will need serial clinical and echocardiographic monitoring for aortic valve stenosis. 3. Continue antihypertensive therapy. 4. Continue diabetes care. MD MATA Salomon/MODL /[id number]
[2019-10-23 12:00] VITALS: BP 97/75
--- NOTE | 2019-10-23 13:38 | Operative Report ---
DATE OF PROCEDURE: 10/23/2019 SURGEON: Primo Shrestha MD PROCEDURE INDICATION: Chest pain. INTERPRETING AND SUPERVISING PHYSICIAN: Primo Shrestha MD, Interventional Cardiology. INTERPRETION: Lexiscan nicardipine stress dose was performed for complaints of chest discomfort. At rest, heart rate 77, blood pressure 120/75. After Lexiscan, there were no significant ST changes or arrhythmias with initial EKG sinus rhythm, nonspecific clinical abnormality. No angina reported with stress or post recovery. No arrhythmias noted. Peak heart rate 113, blood pressure decreased to 110. Myocardial perfusion reveals normal rest and stress perfusion. Gated images demonstrate preserved left ventricular systolic function, normal regional wall motion, left ventricular ejection fraction of 64%. CONCLUSION: 1. Normal hemodynamic response to Lexiscan stress. 2. Normal electrocardiographic response to Lexiscan stress. 3. Normal myocardial perfusion at rest and post stress. Primo Shrestha MD AFV/MODL /[id number]
--- NOTE | 2019-10-23 13:38 | NUR ---
PT DISCHARGED HOME WITH FAMILY MEMBER, PRESCRIPTIONS GIVEN, PT AND FAMILY MEMBER WHERE EDUCATED ON MEDICATIONS, PT IV SITE REMOVED , NO SWELLING NO REDNESS TO SITE.
--- NOTE | 2019-10-24 00:46 | Discharge Summary ---
PRIMARY CARE DOCTOR: Dr. Bernardo James. HOSPITALIST: Dr. Kade Stallworth. This is coverage for Dr. Stallworth. PRIMARY DIAGNOSIS: Chest pain, treat as acute coronary syndrome. DISCHARGE DIAGNOSES: Chest tightness, possible bronchitis versus atelectasis versus pneumonia. Aortic stenosis 1.1 cm2 aortic valve area. No high evidence of acute coronary syndrome. HISTORY: The patient presented with chest tightness. His EKG was abnormal at baseline, peak troponin to 0.1. He had inpatient assessment with telemetry, which was unremarkable. The patient with Lexiscan stress test showing no perfusion abnormalities with 64% LVEF with unremarkable EKG portion. The patient will have conservative followup for this aortic stenosis. The patient recommended for followup with Cardiology in four weeks. Follow up with Dr. Bernardo James next week. The patient should be considered for repeat two-view chest x-ray. MEDICATION AT DISCHARGE: Please see discharge medication record for details. ACTIVITY: As tolerated. DIET: Low salt diet. Greater than 30 minutes in discharge planning and coordination of this state. MD KRISTI Vera/MODL /[id number]
== END 2019-10-23 13:36 | disposition home or self-care (01) ==
LOC: ER 13:03 → ERHOLD 15:04 → MED/SURG2 18:11
PROVIDERS: ADMIT Internal Medicine; ATTEND Internal Medicine
DX: R07.89 Other chest pain (principal); I35.0 Nonrheumatic aortic (valve) stenosis; E11.9 Type 2 diabetes mellitus without complications; I10 Essential (primary) hypertension; E78.5 Hyperlipidemia, unspecified; E66.01 Morbid (severe) obesity due to excess calories; R53.81 Other malaise; E03.9 Hypothyroidism, unspecified; Z68.32 Body mass index [BMI] 32.0-32.9, adult; Z87.891 Personal history of nicotine dependence; Z82.49 Family history of ischemic heart disease and other diseases of the circulatory system; M54.5 Low back pain
CPT/HCPCS: 36415 ×4; 71045 ×2; 71046; 78452; 80048; 80053; 80061; 82550 ×2; 82553 ×2; 82948 ×4; 83036; 83880; 84443; 84484 ×2; 85025 ×2; 85610; 85730; 87635; 93005 ×2; 93017; 93306; 99284; A9502; G0378 ×4; J1817; J2785

== ENCOUNTER 2020-05-24 08:20 | Observation (INO) | payer MEDICARE, OTHER ==
[2020-05-19 14:32] LABS: BASOPHILS % 0.3 % (0.0-1.0); EOSINOPHILS # (AUTO) 0.3 (0.0-0.4); EOSINOPHILS % 2.8 % (0.0-6.0); HEMATOCRIT 32.7 % (38.2-49.6); HEMOGLOBIN 10.7 g/dL (14.0-18.0); LYMPHOCYTES # (AUTO) 1.9 (1.0-3.2); LYMPHOCYTES % 15.5 % (18.0-39.1); MEAN CORPUSCULAR HEMOGLOBIN 29.5 pg (28-32); MEAN CORPUSCULAR HGB CONC 32.7 g/dL (31-35); MEAN CORPUSCULAR VOLUME 90.1 fL (81-99); MONOCYTES # (AUTO) 0.7 (0.2-0.8); MONOCYTES % 5.9 % (4.4-11.3); NEUTROPHILS % 75.1 % (38.7-80.0); PLATELET COUNT 404 x10e3/uL (140-360); RED BLOOD COUNT 3.63 x10e6/uL (4.3-5.7); RED CELL DISTRIBUTION WIDTH 13.2 % (11.7-14.4)
[2020-05-19 14:54] LABS: ALANINE AMINOTRANSFERASE 16 IU/L (0-55); ALBUMIN 3.2 g/dL (3.5-5.0); ALBUMIN/GLOBULIN RATIO 0.8 (0.8-2.0); ALKALINE PHOSPHATASE 72 IU/L (40-150); ANION GAP 13.1 mmol/L (8-16); BLOOD UREA NITROGEN 16 mg/dL (7-26); BUN/CREATININE RATIO 22 (6-25); CALCIUM 8.8 mg/dL (8.4-10.2); CARBON DIOXIDE 30 mmol/L (22-29); CHLORIDE 101 mmol/L (98-107); CREATININE, SERUM 0.73 mg/dL (0.72-1.25); EST GLOMERULAR FILTRATION RATE > 60 ML/MIN (60-); GLUCOSE 227 mg/dL (74-118); POTASSIUM 4.1 mmol/L (3.5-5.1); SODIUM 140 mmol/L (136-145)
[2020-05-23 20:47] VITALS: BP 122/69
[~2020-05-24] VITALS: Ht 165.1 cm; Wt 101.8 kg
[2020-05-24] VITALS (23 sets, daily range): BP systolic 91–159; BP diastolic 55–86
[~2020-05-24 08:20] MED LIST: AMLODIPINE BES2.5 MG; ASPIR 8181 MG PO; AZITHROMYCIN250 MG PO; ENALAPRIL MALEA20 MG; GABAPENTIN100 MG; GLIMEPIRIDE2 MG; LEVOTHYROXINE75 MCG; METFORMIN HCL500 MG; MYRBETRIQ50 MG; SIMVASTATIN40 MG
[2020-05-24] MEDS ORDERED: CARVEDILOL3.125 MG PO (08:45)
[2020-05-24] MEDS ORDERED: MIDAZOLAM HCL 2 MG/2 ML VIAL ONE ×3 (08:48→11:40)
[2020-05-24] MEDS ORDERED: HEPARIN SOD (PORCINE) 1000 UNIT/ML 30ML ONE (08:48)
[2020-05-24] MEDS ORDERED: HEPARIN SOD/SOD CHLORIDE 2,000 ML ONE (08:49)
[2020-05-24] MEDS ORDERED: LIDOCAINE HCL 2% LOCAL 20 ML VIAL ONE (08:49)
[2020-05-24] MEDS ORDERED: SODIUM CHLORIDE 0.9% 1000ML 1,000 ML ONE ×2 (08:50→19:29)
[2020-05-24] MEDS ORDERED: IOPAMIDOL 300MG/ML 100 ML INFUS..BTL IV ONE (08:50)
[2020-05-24] MEDS ORDERED: NITROGLYCERIN/D5W 200 MCG/ML 250 ML ONE (08:50)
[2020-05-24] MEDS ORDERED: LANTUS 3ML100 UNITS/ (08:52)
[2020-05-24] MEDS ORDERED: FLOMAX0.4 MG PO (08:52)
[2020-05-24] MEDS ORDERED: HYDROCHLOROTHIA25 MG PO (08:52)
[2020-05-24] MEDS ORDERED: FENTANYL CITRATE/PF 100MCG/2 ML INJ ONE ×2 (08:52→11:40)
[2020-05-24] MEDS ORDERED: TRAVATAN Z5 ML OP (08:52)
[2020-05-24] MEDS ORDERED: METHENAMINE HIPP1 GM PO (08:52)
[2020-05-24] MEDS ORDERED: ELIQUIS5 MG PO (08:52)
[2020-05-24] MEDS ORDERED: ALPRAZOLAM 0.5 MG TAB ONE (09:24)
[2020-05-24] MEDS ORDERED: DIPHENHYDRAMINE HCL 25 MG CAP ONE (09:24)
[2020-05-24] MEDS ORDERED: PROTAMINE SULFATE 10 MG/ML 5 ML VIAL ONE (11:48)
[2020-05-24] MEDS ORDERED: ASPIRIN 325 MG TAB ONE (11:50)
[2020-05-24] MEDS ORDERED: PRASUGREL 10 MG TAB ONE (11:50)
[2020-05-24] MEDS ORDERED: MORPHINE SULFATE INJ 4 MG/ML INJ 1ML ONE (12:32)
[2020-05-24] MEDS ORDERED: METOPROLOL TARTRATE INJ 1 MG/ML VIAL ONE (19:46)
[2020-05-24 19:54] LABS: BASOPHILS % 0.2 % (0.0-1.0); EOSINOPHILS # (AUTO) 0.2 (0.0-0.4); EOSINOPHILS % 1.1 % (0.0-6.0); HEMATOCRIT 34.4 % (38.2-49.6); HEMOGLOBIN 11.4 g/dL (14.0-18.0); LYMPHOCYTES # (AUTO) 1.9 (1.0-3.2); LYMPHOCYTES % 11.9 % (18.0-39.1); MEAN CORPUSCULAR HEMOGLOBIN 29.2 pg (28-32); MEAN CORPUSCULAR HGB CONC 33.1 g/dL (31-35); MEAN CORPUSCULAR VOLUME 88.2 fL (81-99); MONOCYTES % 6.2 % (4.4-11.3); NEUTROPHILS # (AUTO) 13.1 (2.1-6.9); PLATELET COUNT 437 x10e3/uL (140-360); RED CELL DISTRIBUTION WIDTH 13.1 % (11.7-14.4)
[2020-05-24] MEDS ORDERED: SODIUM CHLORIDE 0.9% 1000ML 1,000 ML IV SCH (20:45)
[2020-05-24] MEDS ORDERED: HYDROCODONE/APAP 5MG-325MG TAB PO PRN (20:45)
[2020-05-24] MEDS ORDERED: INFLUENZA VIRUS VAC SPLIT INJ 0.5 ML SYR IM SCH (23:06)
[2020-05-24] MEDS ORDERED: METOPROLOL TARTRATE INJ 1 MG/ML VIAL IV STA (23:41)
[2020-05-24] MEDS ORDERED: DIGOXIN INJ 0.25 MG/ML 2 ML AMP IV ONE (23:45)
[2020-05-25 01:42] VITALS: BP 68/52
[2020-05-25 05:06] LABS: BASOPHILS % 0.3 % (0.0-1.0); EOSINOPHILS # (AUTO) 0.1 (0.0-0.4); EOSINOPHILS % 1.1 % (0.0-6.0); HEMATOCRIT 31.7 % (38.2-49.6); HEMOGLOBIN 10.5 g/dL (14.0-18.0); LYMPHOCYTES # (AUTO) 1.8 (1.0-3.2); LYMPHOCYTES % 15.4 % (18.0-39.1); MEAN CORPUSCULAR HEMOGLOBIN 29.2 pg (28-32); MEAN CORPUSCULAR HGB CONC 33.1 g/dL (31-35); MEAN CORPUSCULAR VOLUME 88.1 fL (81-99); MONOCYTES # (AUTO) 0.8 (0.2-0.8); MONOCYTES % 6.4 % (4.4-11.3); NEUTROPHILS # (AUTO) 9.1 (2.1-6.9); PLATELET COUNT 434 x10e3/uL (140-360); RED CELL DISTRIBUTION WIDTH 13.1 % (11.7-14.4)
[2020-05-25 05:43] LABS: ALANINE AMINOTRANSFERASE 14 IU/L (0-55); ALBUMIN 2.8 g/dL (3.5-5.0); ALBUMIN/GLOBULIN RATIO 0.8 (0.8-2.0); ALKALINE PHOSPHATASE 70 IU/L (40-150); ANION GAP 11.9 mmol/L (8-16); BLOOD UREA NITROGEN 12 mg/dL (7-26); BUN/CREATININE RATIO 17 (6-25); CALCIUM 8.4 mg/dL (8.4-10.2); CARBON DIOXIDE 28 mmol/L (22-29); CHLORIDE 104 mmol/L (98-107); CREATININE, SERUM 0.69 mg/dL (0.72-1.25); EST GLOMERULAR FILTRATION RATE > 60 ML/MIN (60-); GLUCOSE 157 mg/dL (74-118); POTASSIUM 3.9 mmol/L (3.5-5.1); SODIUM 140 mmol/L (136-145)
[2020-05-25 06:29] VITALS: BP 120/61
[2020-05-25 08:06] VITALS: BP 166/86
[2020-05-25 08:21] VITALS: BP 166/86
[2020-05-25 12:08] VITALS: BP 129/59
== END 2020-05-25 11:58 | disposition home or self-care (01) ==
LOC: CATH LAB 08:20 → MED/SURG2 21:34
PROVIDERS: ADMIT Internal Medicine Interventional Cardiology; ATTEND Internal Medicine Interventional Cardiology
DX: I70.213 Atherosclerosis of native arteries of extremities with intermittent claudication, bilateral legs (principal); I48.0 Paroxysmal atrial fibrillation; I10 Essential (primary) hypertension; E78.00 Pure hypercholesterolemia, unspecified; E11.51 Type 2 diabetes mellitus with diabetic peripheral angiopathy without gangrene; Z01.812 Encounter for preprocedural laboratory examination; Z20.828 Contact with and (suspected) exposure to other viral communicable diseases; Z79.02 Long term (current) use of antithrombotics/antiplatelets; Z79.82 Long term (current) use of aspirin; Z79.4 Long term (current) use of insulin; Z68.36 Body mass index [BMI] 36.0-36.9, adult; Z82.49 Family history of ischemic heart disease and other diseases of the circulatory system; Z82.3 Family history of stroke; Z83.3 Family history of diabetes mellitus
CPT/HCPCS: 36247; 36415; 37186; 37228; 37229; 75625; 75716; 80053; 82948; 85025; 93005; 99152; 99153; C1714; C1769; C1887; G0378; J1160; J1644; J2001; J2250; J2270; J2720; J3010; J7030; Q9967; U0002

== ENCOUNTER → 2020-07-05 | Day surgery (SDC) | payer MEDICARE, OTHER ==
[2020-06-30 13:05] LABS: BASOPHILS % 0.3 % (0.0-1.0); EOSINOPHILS # (AUTO) 0.3 (0.0-0.4); EOSINOPHILS % 2.5 % (0.0-6.0); HEMOGLOBIN 9.9 g/dL (14.0-18.0); LYMPHOCYTES # (AUTO) 1.6 (1.0-3.2); LYMPHOCYTES % 12.8 % (18.0-39.1); MEAN CORPUSCULAR HGB CONC 31.9 g/dL (31-35); MEAN CORPUSCULAR VOLUME 87.6 fL (81-99); MONOCYTES # (AUTO) 0.7 (0.2-0.8); MONOCYTES % 5.2 % (4.4-11.3); NEUTROPHILS # (AUTO) 10.1 (2.1-6.9); NEUTROPHILS % 78.7 % (38.7-80.0); PLATELET COUNT 413 x10e3/uL (140-360); RED BLOOD COUNT 3.54 x10e6/uL (4.3-5.7); RED CELL DISTRIBUTION WIDTH 12.9 % (11.7-14.4)
[2020-06-30 13:32] LABS: ALBUMIN/GLOBULIN RATIO 0.8 (0.8-2.0); ALKALINE PHOSPHATASE 89 IU/L (40-150); ANION GAP 15.9 mmol/L (8-16); BLOOD UREA NITROGEN 8 mg/dL (7-26); BUN/CREATININE RATIO 12 (6-25); CALCIUM 8.2 mg/dL (8.4-10.2); CARBON DIOXIDE 30 mmol/L (22-29); CHLORIDE 97 mmol/L (98-107); CREATININE, SERUM 0.65 mg/dL (0.72-1.25); EST GLOMERULAR FILTRATION RATE > 60 ML/MIN (60-); GLUCOSE 287 mg/dL (74-118); SODIUM 140 mmol/L (136-145)
[2020-06-30 13:42] LABS: POTASSIUM 2.9 mmol/L (3.5-5.1)
[2020-06-30 13:57] LABS: ALANINE AMINOTRANSFERASE < 6 IU/L (0-55)
[~2020-07-05] VITALS: Ht 165.1 cm; Wt 95.3 kg
[2020-07-05] VITALS (8 sets, daily range): BP systolic 111–142; BP diastolic 68–83
[~2020-07-05] MED LIST changes: +ALPRAZOLAM 0.5 MG TAB ONE; -AMLODIPINE BES2.5 MG; +AMLODIPINE BES2.5 MG PO; +CARVEDILOL3.125 MG PO; +DIPHENHYDRAMINE HCL 25 MG CAP ONE; +ELIQUIS5 MG PO; +FENTANYL CITRATE/PF 100MCG/2 ML INJ ONE; +FLOMAX0.4 MG PO; -GABAPENTIN100 MG; +GABAPENTIN100 MG PO; +HEPARIN SOD/SOD CHLORIDE 2,000 ML ONE; +HYDROCHLOROTHIA25 MG PO; +IOPAMIDOL 300MG/ML 100 ML INFUS..BTL IV ONE; +LANTUS 3ML100 UNITS/ SC; -LEVOTHYROXINE75 MCG; +LEVOTHYROXINE75 MCG PO; +LIDOCAINE HCL 2% LOCAL 20 ML VIAL ONE; +METHENAMINE HIPP1 GM PO; +MIDAZOLAM HCL 2 MG/2 ML VIAL ONE; -MYRBETRIQ50 MG; +MYRBETRIQ50 MG PO; +SODIUM CHLORIDE 0.9% 1000ML 1,000 ML ONE; +TRAVATAN Z5 ML OP; +ULTRAM50 MG PO; +Z.0.FLONASE16 GM NS
== END | disposition home or self-care (01) ==
LOC: CATH LAB 11:33
PROVIDERS: ATTEND Internal Medicine Interventional Cardiology
DX: I70.221 Atherosclerosis of native arteries of extremities with rest pain, right leg (principal); I87.2 Venous insufficiency (chronic) (peripheral); I10 Essential (primary) hypertension; I48.91 Unspecified atrial fibrillation; E78.00 Pure hypercholesterolemia, unspecified; E13.69 Other specified diabetes mellitus with other specified complication; E07.9 Disorder of thyroid, unspecified; Z01.812 Encounter for preprocedural laboratory examination; Z20.822 Contact with and (suspected) exposure to COVID-19; Z79.4 Long term (current) use of insulin; Z79.02 Long term (current) use of antithrombotics/antiplatelets; Z68.36 Body mass index [BMI] 36.0-36.9, adult; Z82.49 Family history of ischemic heart disease and other diseases of the circulatory system; Z83.3 Family history of diabetes mellitus; Z82.3 Family history of stroke
CPT/HCPCS: 36415 ×2; 37186; 37229; 37233; 75710; 76937; 80053; 82948; 85025; C1714 ×2; C1760; C1769 ×3; C1887; J2001; J2250; J3010; J7030; Q9967; U0002; 36247; 99152; 99153

== ENCOUNTER 2021-01-22 17:01 | Inpatient (IN) | payer MEDICARE, OTHER ==
[~2021-01-22] VITALS: Ht 167.6 cm; Wt 97.5 kg
[~2021-01-22 17:01] MED LIST changes: -ALPRAZOLAM 0.5 MG TAB ONE; -DIPHENHYDRAMINE HCL 25 MG CAP ONE; -FENTANYL CITRATE/PF 100MCG/2 ML INJ ONE; -HEPARIN SOD/SOD CHLORIDE 2,000 ML ONE; -IOPAMIDOL 300MG/ML 100 ML INFUS..BTL IV ONE; -LIDOCAINE HCL 2% LOCAL 20 ML VIAL ONE; -MIDAZOLAM HCL 2 MG/2 ML VIAL ONE; -SODIUM CHLORIDE 0.9% 1000ML 1,000 ML ONE
[2021-01-22] MEDS ORDERED: SODIUM CHLORIDE 0.9% 1000ML 1,000 ML IV SCH (17:45)
[2021-01-22] MEDS ORDERED: CEFEPIME 1 GM in SODIUM CHLORIDE 0.9% 50ML 50 ML IV ONE (17:45)
[2021-01-22] MEDS ORDERED: ASPIRIN 81 MG CHEW TAB PO ONE (17:45)
[2021-01-22 18:29] LABS: BASOPHILS % 0.2 % (0.0-1.0); EOSINOPHILS # (AUTO) 0.1 (0.0-0.4); EOSINOPHILS % 0.3 % (0.0-6.0); HEMATOCRIT 29.9 % (38.2-49.6); HEMOGLOBIN 9.5 g/dL (14.0-18.0); LYMPHOCYTES # (AUTO) 2.3 (1.0-3.2); LYMPHOCYTES % 12.8 % (18.0-39.1); MEAN CORPUSCULAR HEMOGLOBIN 28.7 pg (28-32); MEAN CORPUSCULAR HGB CONC 31.8 g/dL (31-35); MEAN CORPUSCULAR VOLUME 90.3 fL (81-99); MONOCYTES # (AUTO) 1.5 (0.2-0.8); MONOCYTES % 8.2 % (4.4-11.3); NEUTROPHILS # (AUTO) 13.8 (2.1-6.9); NEUTROPHILS % 77.7 % (38.7-80.0); PLATELET COUNT 292 x10e3/uL (140-360); RED BLOOD COUNT 3.31 x10e6/uL (4.3-5.7); RED CELL DISTRIBUTION WIDTH 14.1 % (11.7-14.4)
[2021-01-22 18:48] LABS: ALBUMIN 2.9 g/dL (3.5-5.0); ALBUMIN/GLOBULIN RATIO 0.8 (0.8-2.0); ANION GAP 15.9 mmol/L (8-16); CREATININE, SERUM 1.51 mg/dL (0.72-1.25); POTASSIUM 3.9 mmol/L (3.5-5.1)
[2021-01-22 18:57] LABS: CLARITY,URINE CLEAR (CLEAR); COLOR,URINE YELLOW (YELLOW); KETONES,URINE TRACE (NEGATIVE); LEUKOCYTE ESTERASE ,URINE LARGE (NEGATIVE); NITRITE,URINE NEGATIVE (NEGATIVE); PROTEIN,URINE DIPSTICK 1+ (NEGATIVE); URINE UROBILINOGEN 0.2 mg/dL (0.2 - 1)
[2021-01-22 19:06] LABS: BACTERIA,URINE MANY /HPF; WBC,URINE (MAN) >50 /HPF (0-5)
[2021-01-22 19:07] LABS: EPITHELIAL CELLS,URINE FEW /LPF; MUCUS,URINE FEW (RARE)
[2021-01-22 19:20] LABS: CREATINE KINASE MB 1.9 ng/mL (0-5.0)
[2021-01-22] MEDS ORDERED: NOREPINEPHRINE 8 MG/D5W 250 ML 250 ML IV SCH (22:00)
[2021-01-22] MEDS ORDERED: NOREPINEPHRINE 8 MG/D5W 250 ML 250 ML ONE (22:13)
[2021-01-23] VITALS (20 sets, daily range): BP systolic 107–129; BP diastolic 49–80
[2021-01-23] MEDS ORDERED: DILTIAZEM HCL 5 MG/ML 5 ML VIAL IV STA ×2 (01:31→03:56)
[2021-01-23] MEDS ORDERED: DILTIAZEM HCL VIAL 5 ML ONE (01:34)
[2021-01-23] MEDS ORDERED: DILTIAZEM HCL IV SOLN 125 MG in SODIUM CHLORIDE 0.9% 100 ML 100 ML IV STA (04:32)
[2021-01-23] MEDS ORDERED: SODIUM CHLORIDE 0.9% 100 ML ONE (04:42)
[2021-01-23] MEDS ORDERED: DILTIAZEM HCL IV 5MG/ML 25 ML VIAL ONE (04:43)
[2021-01-23] MEDS ORDERED: TRAMADOL HCL 50 MG TAB PO PRN (06:45)
[2021-01-23] MEDS ORDERED: DEXTROSE 50% SYRINGE 50 ML IV PRN (07:00)
[2021-01-23] MEDS ORDERED: METOPROLOL TARTRATE INJ 1 MG/ML VIAL IV PRN (07:00)
[2021-01-23 07:04] LABS: BASOPHILS % 0.1 % (0.0-1.0); EOSINOPHILS # (AUTO) 0.2 (0.0-0.4); EOSINOPHILS % 0.7 % (0.0-6.0); HEMATOCRIT 29.6 % (38.2-49.6); HEMOGLOBIN 9.5 g/dL (14.0-18.0); LYMPHOCYTES # (AUTO) 1.7 (1.0-3.2); LYMPHOCYTES % 8.1 % (18.0-39.1); MEAN CORPUSCULAR HEMOGLOBIN 28.6 pg (28-32); MEAN CORPUSCULAR HGB CONC 32.1 g/dL (31-35); MEAN CORPUSCULAR VOLUME 89.2 fL (81-99); MONOCYTES # (AUTO) 1.4 (0.2-0.8); MONOCYTES % 6.8 % (4.4-11.3); NEUTROPHILS # (AUTO) 17.6 (2.1-6.9); NEUTROPHILS % 83.3 % (38.7-80.0); PLATELET COUNT 316 x10e3/uL (140-360); RED BLOOD COUNT 3.32 x10e6/uL (4.3-5.7); RED CELL DISTRIBUTION WIDTH 13.9 % (11.7-14.4)
[2021-01-23] MEDS ORDERED: AMIODARONE HCL 150 MG/100 ML BAG IV ONE (07:15)
[2021-01-23] MEDS ORDERED: AMIODARONE HCL 150MG 100 ML ONE (07:20)
[2021-01-23] MEDS ORDERED: AMIODARONE HCL 150 MG in DEXTROSE 5% 100ML 100 ML IV SCH (07:30)
[2021-01-23 07:32] LABS: ALBUMIN 2.8 g/dL (3.5-5.0); ALBUMIN/GLOBULIN RATIO 0.7 (0.8-2.0); ANION GAP 14.4 mmol/L (8-16); CALCIUM 8.2 mg/dL (8.4-10.2); CREATININE, SERUM 0.79 mg/dL (0.72-1.25); POTASSIUM 3.4 mmol/L (3.5-5.1)
[2021-01-23] MEDS ORDERED: AMIODARONE 900MG 500 ML IV ONE (07:40)
[2021-01-23] MEDS: FLUTICASONE PROPIONATE NASAL SPRAY NS SCH (09:00)
[2021-01-23] MEDS ORDERED: AMIODARONE HCL 200 MG TAB PO SCH (09:00)
[2021-01-23] MEDS ORDERED: DEXTROSE 5% 100ML 100 ML IV ONE (10:08)
[2021-01-23] MEDS: LEVOTHYROXINE SODIUM 75 MCG TAB PO SCH (10:42)
[2021-01-23] MEDS: APIXABAN 5 MG TABLET PO SCH ×2 (10:42→18:36)
[2021-01-23] MEDS: TAMSULOSIN HCL 0.4 MG CAP PO SCH (10:42)
[2021-01-23] MEDS: SODIUM CHLORIDE 0.9% 1000ML 1,000 ML IV SCH ×2 (10:42→20:52)
[2021-01-23] MEDS: CEFEPIME 1 GM in SODIUM CHLORIDE 0.9% 50ML 50 ML IV SCH ×2 (10:43→20:49)
[2021-01-23] MEDS: INSULIN REGULAR, HUMAN 100 UNIT/1 ML SQ SCH ×4 (10:48→20:51)
[2021-01-23] MEDS ORDERED: POTASSIUM CHLORIDE 10MEQ EA PO ONE (12:00)
[2021-01-23] MEDS ORDERED: CEFEPIME 1 GM in SODIUM CHLORIDE 0.9% 50ML 50 ML IV SCH (17:00)
[2021-01-23] MEDS: GABAPENTIN 100 MG CAP PO SCH (20:50)
[2021-01-23] MEDS: SIMVASTATIN 40 MG TAB PO SCH (20:50)
[2021-01-23] MEDS: TRAVOPROST(OPTH) 2.5 ML BTL OP SCH (21:00)
[2021-01-24] VITALS (9 sets, daily range): BP systolic 103–133; BP diastolic 39–62
[2021-01-24] MEDS: LEVOTHYROXINE SODIUM 75 MCG TAB PO SCH (05:18)
[2021-01-24 05:24] LABS: ANION GAP 11.8 mmol/L (8-16); CALCIUM 8.1 mg/dL (8.4-10.2); CREATININE, SERUM 0.62 mg/dL (0.72-1.25); MAGNESIUM 1.7 MG/DL (1.3-2.1); POTASSIUM 3.8 mmol/L (3.5-5.1)
[2021-01-24 05:47] LABS: THYROID STIMULATING HORMONE 3.104 uIU/mL (0.350-4.940)
[2021-01-24] MEDS ORDERED: SODIUM CHLORIDE 0.9% 250ML 0 ML ONE (07:24)
[2021-01-24] MEDS: INSULIN REGULAR, HUMAN 100 UNIT/1 ML SQ SCH ×4 (07:30→20:31)
[2021-01-24] MEDS: FUROSEMIDE INJ 10 MG/ML 2 ML VIAL IV SCH (08:39)
[2021-01-24] MEDS: FLUTICASONE PROPIONATE NASAL SPRAY NS SCH (08:40)
[2021-01-24] MEDS: APIXABAN 5 MG TABLET PO SCH ×2 (08:40→16:38)
[2021-01-24] MEDS: CEFEPIME 1 GM in SODIUM CHLORIDE 0.9% 50ML 50 ML IV SCH (08:40)
[2021-01-24] MEDS: TAMSULOSIN HCL 0.4 MG CAP PO SCH (08:40)
[2021-01-24] MEDS: AMIODARONE HCL 200 MG TAB PO SCH ×2 (09:04→16:38)
[2021-01-24] MEDS: MEROPENEM 500 MG in SODIUM CHLORIDE 0.9% 50ML 50 ML IV SCH ×3 (12:29→23:11)
[2021-01-24] MEDS: BALSAM PERU/CASTOR OIL 60 GM OINT...G. TP SCH (18:00)
[2021-01-24] MEDS: TRAVOPROST(OPTH) 2.5 ML BTL OP SCH (20:06)
[2021-01-24] MEDS: SIMVASTATIN 40 MG TAB PO SCH (20:07)
[2021-01-24] MEDS: GABAPENTIN 100 MG CAP PO SCH (20:07)
[2021-01-24] MEDS ORDERED: SODIUM CHLORIDE 0.9% 250ML 250 ML ONE (22:25)
[2021-01-25] VITALS (8 sets, daily range): BP systolic 131–148; BP diastolic 50–91
[2021-01-25 04:50] LABS: BASOPHILS % 0.3 % (0.0-1.0); EOSINOPHILS # (AUTO) 0.4 (0.0-0.4); EOSINOPHILS % 3.4 % (0.0-6.0); HEMATOCRIT 26.8 % (38.2-49.6); HEMOGLOBIN 8.8 g/dL (14.0-18.0); LYMPHOCYTES # (AUTO) 1.5 (1.0-3.2); LYMPHOCYTES % 13.5 % (18.0-39.1); MEAN CORPUSCULAR HEMOGLOBIN 28.9 pg (28-32); MEAN CORPUSCULAR HGB CONC 32.8 g/dL (31-35); MEAN CORPUSCULAR VOLUME 88.2 fL (81-99); MONOCYTES # (AUTO) 0.7 (0.2-0.8); MONOCYTES % 6.3 % (4.4-11.3); NEUTROPHILS # (AUTO) 8.1 (2.1-6.9); NEUTROPHILS % 75.8 % (38.7-80.0); PLATELET COUNT 320 x10e3/uL (140-360); RED BLOOD COUNT 3.04 x10e6/uL (4.3-5.7); RED CELL DISTRIBUTION WIDTH 13.5 % (11.7-14.4)
[2021-01-25] MEDS: MEROPENEM 500 MG in SODIUM CHLORIDE 0.9% 50ML 50 ML IV SCH (05:07)
[2021-01-25] MEDS: LEVOTHYROXINE SODIUM 75 MCG TAB PO SCH (05:07)
[2021-01-25 05:14] LABS: ANION GAP 13.5 mmol/L (8-16); CALCIUM 8.4 mg/dL (8.4-10.2); CREATININE, SERUM 0.64 mg/dL (0.72-1.25); MAGNESIUM 1.6 MG/DL (1.3-2.1); POTASSIUM 3.5 mmol/L (3.5-5.1)
[2021-01-25] MEDS: INSULIN REGULAR, HUMAN 100 UNIT/1 ML SQ SCH ×4 (07:30→21:15)
[2021-01-25] MEDS: FLUTICASONE PROPIONATE NASAL SPRAY NS SCH (09:00)
[2021-01-25] MEDS: FUROSEMIDE INJ 10 MG/ML 2 ML VIAL IV SCH (10:04)
[2021-01-25] MEDS: AMIODARONE HCL 200 MG TAB PO SCH ×2 (10:04→17:00)
[2021-01-25] MEDS: TAMSULOSIN HCL 0.4 MG CAP PO SCH (10:05)
[2021-01-25] MEDS: APIXABAN 5 MG TABLET PO SCH ×2 (10:05→17:00)
[2021-01-25] MEDS: LEVOFLOXACIN 500 MG TAB PO SCH (13:40)
[2021-01-25] MEDS: BALSAM PERU/CASTOR OIL 60 GM OINT...G. TP SCH (18:00)
[2021-01-25] MEDS ORDERED: LEVOFLOXACIN500 MG PO (20:05)
[2021-01-25] MEDS ORDERED: POTASSIUM CHLORIDE 20 MEQ TAB CR PO STA (20:14)
[2021-01-25] MEDS ORDERED: FUROSEMIDE INJ 10 MG/ML 2 ML VIAL IV ONE (20:15)
[2021-01-25] MEDS: TRAVOPROST(OPTH) 2.5 ML BTL OP SCH (21:00)
[2021-01-25] MEDS: SIMVASTATIN 40 MG TAB PO SCH (21:15)
[2021-01-25] MEDS: GABAPENTIN 100 MG CAP PO SCH (21:15)
[2021-01-26] VITALS (8 sets, daily range): BP systolic 121–160; BP diastolic 50–69
[2021-01-26] MEDS: LEVOTHYROXINE SODIUM 75 MCG TAB PO SCH (05:24)
[2021-01-26] MEDS: INSULIN REGULAR, HUMAN 100 UNIT/1 ML SQ SCH ×4 (07:30→21:00)
[2021-01-26] MEDS: AMIODARONE HCL 200 MG TAB PO SCH ×2 (09:00→16:32)
[2021-01-26] MEDS: FLUTICASONE PROPIONATE NASAL SPRAY NS SCH (09:00)
[2021-01-26] MEDS: BALSAM PERU/CASTOR OIL 60 GM OINT...G. TP SCH (09:00)
[2021-01-26] MEDS: FUROSEMIDE INJ 10 MG/ML 2 ML VIAL IV SCH (09:00)
[2021-01-26] MEDS: TAMSULOSIN HCL 0.4 MG CAP PO SCH (09:00)
[2021-01-26] MEDS ORDERED: MAGNESIUM SULFATE 2GM/50ML 50 ML IV ONE (12:00)
[2021-01-26] MEDS: LEVOFLOXACIN 500 MG TAB PO SCH (13:32)
[2021-01-26] MEDS: TRAVOPROST(OPTH) 2.5 ML BTL OP SCH (21:00)
[2021-01-26] MEDS: SIMVASTATIN 40 MG TAB PO SCH (21:22)
[2021-01-26] MEDS: GABAPENTIN 100 MG CAP PO SCH (21:22)
[2021-01-27] VITALS (9 sets, daily range): BP systolic 131–149; BP diastolic 47–98
[2021-01-27 05:31] LABS: ALBUMIN 2.5 g/dL (3.5-5.0); ALBUMIN/GLOBULIN RATIO 0.7 (0.8-2.0); ANION GAP 15.4 mmol/L (8-16); CALCIUM 8.7 mg/dL (8.4-10.2); CREATININE, SERUM 0.64 mg/dL (0.72-1.25); MAGNESIUM 1.9 MG/DL (1.3-2.1); POTASSIUM 3.4 mmol/L (3.5-5.1)
[2021-01-27] MEDS: LEVOTHYROXINE SODIUM 75 MCG TAB PO SCH (05:52)
[2021-01-27] MEDS: INSULIN REGULAR, HUMAN 100 UNIT/1 ML SQ SCH ×4 (07:30→21:37)
[2021-01-27] MEDS: FLUTICASONE PROPIONATE NASAL SPRAY NS SCH (08:38)
[2021-01-27] MEDS: AMIODARONE HCL 200 MG TAB PO SCH ×2 (08:38→16:43)
[2021-01-27] MEDS: BALSAM PERU/CASTOR OIL 60 GM OINT...G. TP SCH (08:39)
[2021-01-27] MEDS: TAMSULOSIN HCL 0.4 MG CAP PO SCH (08:39)
[2021-01-27] MEDS: FUROSEMIDE 20 MG TAB PO SCH (08:39)
[2021-01-27] MEDS ORDERED: POTASSIUM CHLORIDE 20 MEQ TAB CR PO ONE (10:00)
[2021-01-27] MEDS ORDERED: MAGNESIUM SULFATE 2GM/50ML 50 ML IV ONE (10:00)
[2021-01-27] MEDS: LEVOFLOXACIN 500 MG TAB PO SCH (14:00)
[2021-01-27 14:58] LABS: HEMATOCRIT 27.9 % (38.2-49.6); HEMOGLOBIN 8.8 g/dL (14.0-18.0)
[2021-01-27] MEDS: SIMVASTATIN 40 MG TAB PO SCH (21:39)
[2021-01-27] MEDS: TRAVOPROST(OPTH) 2.5 ML BTL OP SCH (21:39)
[2021-01-27] MEDS: GABAPENTIN 100 MG CAP PO SCH (22:11)
[2021-01-27] MEDS ORDERED: GABAPENTIN 100 MG CAP ONE (22:13)
[2021-01-28] VITALS (7 sets, daily range): BP systolic 118–150; BP diastolic 54–94
[2021-01-28] MEDS: LEVOTHYROXINE SODIUM 75 MCG TAB PO SCH (05:59)
[2021-01-28] MEDS: FLUTICASONE PROPIONATE NASAL SPRAY NS SCH (09:00)
[2021-01-28] MEDS: AMIODARONE HCL 200 MG TAB PO SCH ×2 (10:21→18:21)
[2021-01-28] MEDS: TAMSULOSIN HCL 0.4 MG CAP PO SCH (10:21)
[2021-01-28] MEDS: FUROSEMIDE 20 MG TAB PO SCH (10:21)
[2021-01-28] MEDS: INSULIN REGULAR, HUMAN 100 UNIT/1 ML SQ SCH ×4 (11:30→21:45)
[2021-01-28 12:54] LABS: HEMOGLOBIN 9.5 g/dL (14.0-18.0); MEAN CORPUSCULAR HEMOGLOBIN 28.8 pg (28-32); MEAN CORPUSCULAR HGB CONC 31.7 g/dL (31-35); MEAN CORPUSCULAR VOLUME 90.9 fL (81-99); PLATELET COUNT 407 x10e3/uL (140-360); RED CELL DISTRIBUTION WIDTH 13.5 % (11.7-14.4)
[2021-01-28 13:09] LABS: ANION GAP 12.9 mmol/L (8-16); CALCIUM 8.5 mg/dL (8.4-10.2); CREATININE, SERUM 0.72 mg/dL (0.72-1.25); POTASSIUM 3.9 mmol/L (3.5-5.1)
[2021-01-28] MEDS: LEVOFLOXACIN 500 MG TAB PO SCH (13:49)
[2021-01-28] MEDS: BALSAM PERU/CASTOR OIL 60 GM OINT...G. TP SCH (16:29)
[2021-01-28] MEDS ORDERED: SODIUM CHLORIDE 0.9% 50ML 0 ML ONE (17:10)
[2021-01-28] MEDS ORDERED: IOPAMIDOL 370 MG/ML 200 ML INFUS..BTL INJ ONE (17:11)
[2021-01-28] MEDS ORDERED: SODIUM CHLORIDE 0.9% 250ML 250 ML ONE (17:13)
[2021-01-28] MEDS: TRAVOPROST(OPTH) 2.5 ML BTL OP SCH (21:00)
[2021-01-28] MEDS: SIMVASTATIN 40 MG TAB PO SCH (21:45)
[2021-01-28] MEDS: GABAPENTIN 100 MG CAP PO SCH (21:45)
[2021-01-29] VITALS (8 sets, daily range): BP systolic 114–144; BP diastolic 53–73
[2021-01-29] MEDS: LEVOTHYROXINE SODIUM 75 MCG TAB PO SCH (05:03)
[2021-01-29 06:12] LABS: BASOPHILS # (AUTO) 0.1 (0.0-0.1); BASOPHILS % 0.3 % (0.0-1.0); EOSINOPHILS # (AUTO) 0.7 (0.0-0.4); EOSINOPHILS % 4.5 % (0.0-6.0); HEMATOCRIT 25.7 % (38.2-49.6); HEMOGLOBIN 8.2 g/dL (14.0-18.0); LYMPHOCYTES # (AUTO) 1.5 (1.0-3.2); LYMPHOCYTES % 9.8 % (18.0-39.1); MEAN CORPUSCULAR HEMOGLOBIN 28.6 pg (28-32); MEAN CORPUSCULAR HGB CONC 31.9 g/dL (31-35); MEAN CORPUSCULAR VOLUME 89.5 fL (81-99); MONOCYTES # (AUTO) 0.8 (0.2-0.8); NEUTROPHILS # (AUTO) 12.3 (2.1-6.9); NEUTROPHILS % 79.7 % (38.7-80.0); PLATELET COUNT 400 x10e3/uL (140-360); RED BLOOD COUNT 2.87 x10e6/uL (4.3-5.7); RED CELL DISTRIBUTION WIDTH 13.7 % (11.7-14.4)
[2021-01-29 06:29] LABS: ANION GAP 13.3 mmol/L (8-16); CALCIUM 8.3 mg/dL (8.4-10.2); CREATININE, SERUM 0.63 mg/dL (0.72-1.25); POTASSIUM 3.3 mmol/L (3.5-5.1)
[2021-01-29] MEDS: FUROSEMIDE 20 MG TAB PO SCH (09:33)
[2021-01-29] MEDS: BALSAM PERU/CASTOR OIL 60 GM OINT...G. TP SCH (09:33)
[2021-01-29] MEDS: TAMSULOSIN HCL 0.4 MG CAP PO SCH (09:33)
[2021-01-29] MEDS: AMIODARONE HCL 200 MG TAB PO SCH ×2 (09:33→16:54)
[2021-01-29] MEDS: FLUTICASONE PROPIONATE NASAL SPRAY NS SCH (09:34)
[2021-01-29] MEDS: INSULIN REGULAR, HUMAN 100 UNIT/1 ML SQ SCH ×4 (11:30→22:04)
[2021-01-29] MEDS ORDERED: LEVOFLOXACIN 250 MG TAB PO SCH (14:00)
[2021-01-29] MEDS: TRAVOPROST(OPTH) 2.5 ML BTL OP SCH (20:40)
[2021-01-29] MEDS: SIMVASTATIN 40 MG TAB PO SCH (22:03)
[2021-01-29] MEDS: GABAPENTIN 100 MG CAP PO SCH (22:03)
[2021-01-30] VITALS (8 sets, daily range): BP systolic 107–140; BP diastolic 45–95
[2021-01-30] MEDS: LEVOTHYROXINE SODIUM 75 MCG TAB PO SCH (06:12)
[2021-01-30] MEDS: INSULIN REGULAR, HUMAN 100 UNIT/1 ML SQ SCH ×4 (07:30→21:30)
[2021-01-30] MEDS: FUROSEMIDE 20 MG TAB PO SCH (08:59)
[2021-01-30] MEDS: AMIODARONE HCL 200 MG TAB PO SCH ×2 (08:59→16:36)
[2021-01-30] MEDS: TAMSULOSIN HCL 0.4 MG CAP PO SCH (08:59)
[2021-01-30] MEDS: FLUTICASONE PROPIONATE NASAL SPRAY NS SCH (08:59)
[2021-01-30] MEDS: BALSAM PERU/CASTOR OIL 60 GM OINT...G. TP SCH (09:00)
[2021-01-30] MEDS: LEVOFLOXACIN 500 MG TAB PO SCH (14:00)
[2021-01-30] MEDS: TRAVOPROST(OPTH) 2.5 ML BTL OP SCH (21:00)
[2021-01-30] MEDS: SIMVASTATIN 40 MG TAB PO SCH (22:09)
[2021-01-30] MEDS: GABAPENTIN 100 MG CAP PO SCH (22:09)
[2021-01-31] VITALS (8 sets, daily range): BP systolic 100–140; BP diastolic 50–78
[2021-01-31] MEDS: LEVOTHYROXINE SODIUM 75 MCG TAB PO SCH (05:54)
[2021-01-31] MEDS: INSULIN REGULAR, HUMAN 100 UNIT/1 ML SQ SCH ×4 (07:30→21:10)
[2021-01-31] MEDS: FUROSEMIDE 20 MG TAB PO SCH (09:24)
[2021-01-31] MEDS: TAMSULOSIN HCL 0.4 MG CAP PO SCH (09:24)
[2021-01-31] MEDS: AMIODARONE HCL 200 MG TAB PO SCH ×2 (09:24→17:46)
[2021-01-31] MEDS: FLUTICASONE PROPIONATE NASAL SPRAY NS SCH (13:25)
[2021-01-31] MEDS: LEVOFLOXACIN 500 MG TAB PO SCH (14:00)
[2021-01-31 15:44] LABS: HEMATOCRIT 28.8 % (38.2-49.6); HEMOGLOBIN 8.9 g/dL (14.0-18.0); RED BLOOD COUNT 3.18 x10e6/uL (4.3-5.7)
[2021-01-31 15:45] LABS: BASOPHILS % 0.4 % (0.0-1.0); EOSINOPHILS # (AUTO) 0.3 (0.0-0.4); EOSINOPHILS % 2.8 % (0.0-6.0); LYMPHOCYTES # (AUTO) 1.1 (1.0-3.2); MEAN CORPUSCULAR HGB CONC 30.9 g/dL (31-35); MEAN CORPUSCULAR VOLUME 90.6 fL (81-99); MONOCYTES # (AUTO) 0.5 (0.2-0.8); MONOCYTES % 4.2 % (4.4-11.3); NEUTROPHILS # (AUTO) 9.2 (2.1-6.9); NEUTROPHILS % 81.6 % (38.7-80.0); PLATELET COUNT 429 x10e3/uL (140-360); RED CELL DISTRIBUTION WIDTH 13.8 % (11.7-14.4)
[2021-01-31 16:12] LABS: ANION GAP 14.6 mmol/L (8-16); CALCIUM 8.2 mg/dL (8.4-10.2); CREATININE, SERUM 0.75 mg/dL (0.72-1.25); POTASSIUM 3.6 mmol/L (3.5-5.1)
[2021-01-31] MEDS: BALSAM PERU/CASTOR OIL 60 GM OINT...G. TP SCH (17:48)
[2021-01-31] MEDS: TRAVOPROST(OPTH) 2.5 ML BTL OP SCH (21:00)
[2021-01-31] MEDS: SIMVASTATIN 40 MG TAB PO SCH (21:32)
[2021-01-31] MEDS: GABAPENTIN 100 MG CAP PO SCH (21:32)
[2021-02-01] VITALS (9 sets, daily range): BP systolic 121–143; BP diastolic 49–67
[2021-02-01] MEDS: LEVOTHYROXINE SODIUM 75 MCG TAB PO SCH (06:00)
[2021-02-01] MEDS: INSULIN REGULAR, HUMAN 100 UNIT/1 ML SQ SCH ×3 (07:30→17:16)
[2021-02-01] MEDS: AMIODARONE HCL 200 MG TAB PO SCH ×2 (08:24→16:25)
[2021-02-01] MEDS: FLUTICASONE PROPIONATE NASAL SPRAY NS SCH (09:16)
[2021-02-01] MEDS: TAMSULOSIN HCL 0.4 MG CAP PO SCH (09:16)
[2021-02-01] MEDS: BALSAM PERU/CASTOR OIL 60 GM OINT...G. TP SCH (09:16)
[2021-02-01] MEDS: FUROSEMIDE 20 MG TAB PO SCH (09:16)
[2021-02-01] MEDS: LEVOFLOXACIN 500 MG TAB PO SCH (13:51)
== END 2021-02-01 20:10 | disposition left against medical advice (07) | DRG 871 ==
LOC: ER 17:25 → ERHOLD 21:51 → MED/SURG2 01-23 17:02
PROVIDERS: ADMIT Internal Medicine; ATTEND Internal Medicine
PROC: 02HV33Z Insertion of Infusion Device into Superior Vena Cava, Percutaneous Approach (ICD-10-PCS; principal; 2021-01-22)
DX: A41.51 Sepsis due to Escherichia coli [E. coli] (principal); R65.21 Severe sepsis with septic shock; I50.33 Acute on chronic diastolic (congestive) heart failure; N17.9 Acute kidney failure, unspecified; E87.1 Hypo-osmolality and hyponatremia; Z16.12 Extended spectrum beta lactamase (ESBL) resistance; E87.2 Acidosis; N12 Tubulo-interstitial nephritis, not specified as acute or chronic; I48.0 Paroxysmal atrial fibrillation; Z79.01 Long term (current) use of anticoagulants; I11.0 Hypertensive heart disease with heart failure; D64.9 Anemia, unspecified; E11.9 Type 2 diabetes mellitus without complications; E87.6 Hypokalemia; E78.5 Hyperlipidemia, unspecified; E66.9 Obesity, unspecified; Z68.34 Body mass index [BMI] 34.0-34.9, adult; R31.0 Gross hematuria; I35.0 Nonrheumatic aortic (valve) stenosis
CPT/HCPCS: 36415; 51700; 70450; 71045; 74178; 76770; 80048; 80053; 80061; 81001; 82550; 82553; 82948; 83605; 83735; 83880; 84443; 84484; 85007; 85014; 85018; 85025; 85027; 87040; 87086; 87186; 88112; 88305; 93005; 93306; 97139; 99251; 99285; J0456; J0692; J1817; J1940; J2185; J3475; J7030; J7050; Q9967; U0002